=== PATIENT | male | born 1985 ===

== ENCOUNTER 2016-09-16 01:43 | Emergency (ER) | payer SELFPAY ==
[2016-09-16 01:55] VITALS: TEMP 98.4
--- NOTE | 2016-09-16 02:06 | ED PDOC ---
HPI: Hypertension/Hypotension Time Seen by Provider: 09/16/16 02:00 Chief Complaint (Nursing): High Blood Pressure Chief Complaint (Provider): high blood pressure History Per: Patient History/Exam Limitations: no limitations Onset/Duration Of Symptoms: Days Current Symptoms Are (Timing): Still Present Associated Symptoms: Dizziness, Headache Additional History Per: Patient Additional Complaint(s): 30 y/o male history of hypertension, diabetes (noncompliant) brought in by EMS for eval of high blood pressure. Patient states he was working at [employer] when he felt dizzy, lightheaded. He checked his blood pressure and found it to be in the 200's/100's. Patient notes headaches daily, improved tonight with two ibuprofen tablets taken at 19:00. Denies headache at present, extremity numbness/weakness, vision changes, nausea/vomiting, chest pain, shortness of breath, palpitations, abdominal pain. Past Medical History Reviewed: Historical Data, Nursing Documentation, Vital Signs Vital Signs: Last Vital Signs Temp 98.4 F 09/16/16 01:52 Pulse 91 H 09/16/16 01:52 Resp 17 09/16/16 01:52 BP 203/99 H 09/16/16 01:52 Pulse Ox 99 09/16/16 01:52 - Medical History PMH: Diabetes, HTN - Surgical History Surgical History: No Surg Hx - Family History Family History: States: Diabetes - Social History Current smoker - smoking cessation education provided: Yes Alcohol: Social Drugs: Denies - Home Medications Home Medications: Ambulatory Orders Medication Instructions Recorded Meclizine [Meclizine*] 25 mg PO Q6 PRN #20 tab 08/12/15 metFORMIN [glucOPHAGE] 500 mg PO BID #20 tab 08/12/15 amLODIPine [Norvasc] 10 mg PO DAILY #14 tab 09/16/16 metFORMIN [glucOPHAGE] 500 mg PO BID #28 tab 09/16/16 - Allergies Allergies/Adverse Reactions: Allergies Allergy/AdvReac Type Severity Reaction Status Date / Time No Known Allergies Allergy Verified 08/12/15 09:13 Review of Systems ROS Statement: Except As Marked, All Systems Reviewed And Found Negative Neurological: Positive for: Dizziness Physical Exam - Reviewed Nursing Documentation Reviewed: Yes Vital Signs Reviewed: Yes - Physical Exam Appears: Positive for: Well, Non-toxic, No Acute Distress Head Exam: Positive for: ATRAUMATIC, NORMAL INSPECTION, NORMOCEPHALIC Skin: Positive for: Normal Color Eye Exam: Positive for: Normal appearance, EOMI, PERRL ENT: Positive for: Normal ENT Inspection Cardiovascular/Chest: Positive for: Regular Rate, Rhythm Respiratory: Positive for: Normal Breath Sounds Gastrointestinal/Abdominal: Positive for: Normal Exam Back: Positive for: Normal Inspection Extremity: Positive for: Normal ROM Neurologic/Psych: Positive for: Alert, Oriented. Negative for: Motor/Sensory Deficits - Laboratory Results Result Diagrams: 09/16/16 02:22 09/16/16 02:22 Urine dip results: Positive for: Glucose. Negative for: Leukocyte Esterase, Blood, Nitrate, Ketones - ECG ECG: Positive for: Viewed By Me (reviewed by ED attending) ECG Rhythm: Positive for: Sinus Rhythm O2 Sat by Pulse Oximetry: 99 - Progress ED Course And Treament: labs, ekg, urine, CT head, clonidine PO EXAM: CT Head Without Intravenous Contrast CLINICAL HISTORY: 30 years old, male; Pain; Headache; Additional info: Lightheaded, hypertension TECHNIQUE: Axial computed tomography images of the head/brain without intravenous contrast. This CT exam was performed using one or more of the following dose reduction techniques: automated exposure control, adjustment of the mA and/or kV according to patient size, and/or use of iterative reconstruction technique. Coronal and sagittal reformatted images were created and reviewed. EXAM DATE/TIME: Exam ordered 09/16/2016 2:00 AM COMPARISON: CT - HEAD W/O CONTRAST 08/12/2015 10:20:12 AM FINDINGS: Brain: Comparison to previous dated August 12, 2015 at which time there was no acute intracranial pathology. No acute intracranial hemorrhage. Sulci are prominent for age. No significant white matter disease. No edema. Ventricles: Unremarkable. No ventriculomegaly. Bones/joints: No fractures are seen. Soft tissues: Unremarkable. Sinuses: Included portions of the paranasal sinuses are clear. Mastoid air cells: Appearance of the mastoid air cells is without change from the recent previous study. IMPRESSION: No fractures. No intracranial hemorrhage. No sinusitis. No apparent change compared to prior of August 12, 2015. Sulci are prominent for age. Clinical correlation No abnormality suspicious for acute stroke by noncontrast head CT. If there is clinical suspicion for stroke, please note that other modalities are considered to be more sensitive than noncontrast head CT. Please refer to the final report, as additional comparisons or other additional information may be available at that time. IV fluids, IV insulin ordered for elevated glucose in blood. 5:30 Patient states he is feeling much better. BP improved. BG improved Case discussed with ED attending Dr. Vega; who agrees patient can follow up outpatient. Patient educated on findings, discharged with rx Metformin, Amlodipine. Stressed importance of follow up at [facility]. Advised lifestyle modifications Return to ED for worsening/concerning symptoms. Disposition - Clinical Impression Clinical Impression: Hyperglycemia, Elevated blood pressure - Patient ED Disposition Is Patient to be Admitted: No Counseled Patient/Family Regarding: Studies Performed, Diagnosis, Need For Followup, Rx Given - Disposition Referrals: [facility] [Outside] [facility] [Outside] Disposition: Routine/Home Disposition Time: 05:36 Condition: IMPROVED Additional Instructions: Follow up at [facility] as directed. Fill prescriptions and take as directed. Watch salt, sugar intake. Return to ED for worsening/concerning symptoms. Prescriptions: amLODIPine [Norvasc] 10 mg PO DAILY #14 tab metFORMIN [glucOPHAGE] 500 mg PO BID #28 tab Instructions: Hypertension (ED), DASH Eating Plan (ED), Diabetic Hyperglycemia (ED)
[2016-09-16 02:37] LABS: BASO % 0.7 % (0.0-2.0); EOS # 0.1 K/uL (0.0-0.7); EOS % 1.6 % (0.0-4.0); HEMATOCRIT 41.4 % (35.0-51.0); LYMPH # 1.1 K/uL (1.0-4.3); LYMPH % 24.3 % (20.0-40.0); MEAN CELL VOLUME 85.4 fl (80.0-94.0); MEAN CORPUSCULAR HEMOGLOBIN 29.1 pg (27.0-31.0); MONO # 0.4 K/uL (0.0-0.8); MONO % 9.2 % (0.0-10.0); NEUT # 2.8 K/uL (1.8-7.0); NEUT % 64.2 % (50.0-75.0); NRBC % 0.1 % (0.0-0.0); RED CELL DISTRIBUTION WIDTH 14.1 % (11.5-14.5); WHITE BLOOD COUNT 4.4 K/uL (4.8-10.8)
[2016-09-16 02:58] LABS: ALB/GLOB RATIO 0.9 (1.0-2.1); ALKALINE PHOSPHATASE 263 U/L (38-126); ALT/SGPT 40 U/L (21-72); AST/SGOT 71 U/L (17-59); BILIRUBIN,TOTAL 1.4 mg/dl (0.2-1.3); BLOOD UREA NITROGEN 7 mg/dl (9-20); CALCIUM 9.6 mg/dL (8.4-10.2); CARBON DIOXIDE 28 mmol/L (22-30); CHLORIDE 101 mmol/L (98-107); GFR AFRICAN-AMERICAN > 60; POTASSIUM 3.9 MMOL/L (3.6-5.0); SODIUM 141 mmol/l (132-148); TOTAL PROTEIN 7.7 G/DL (6.3-8.2)
[2016-09-16 03:00] LABS: GLUCOSE,RANDOM 404 mg/dL (75-110)
[2016-09-16] MEDS ORDERED: Insulin Regular 100 units/ml IV STA (03:17)
[2016-09-16] MEDS ORDERED: Insulin Regular 100 units/ml ONE (03:29)
[2016-09-16] MEDS ORDERED: Sodium Chloride 0.9% 1,000 ML IV STA (03:50)
[2016-09-16 04:08] VITALS: RESP 18
[2016-09-16 04:24] VITALS: O2SAT 99
[2016-09-16 04:25] LABS: RBC URINE 2 /hpf (0-3); URINE BACTERIA RARE (<OCC); URINE BILIRUBIN NEGATIVE (NEGATIVE); URINE BLOOD NEGATIVE (NEGATIVE); URINE COLOR YELLOW (YELLOW); URINE GLUCOSE (UA) >=500 mg/dL (Normal); URINE KETONE NEGATIVE (NEGATIVE); URINE LEUKOCYTE ESTERASE NEG Leu/uL (Negative); URINE PROTEIN NEGATIVE (NEGATIVE); URINE UROBILINOGEN 0.2-1.0 mg/dL (0.2-1.0); WBC URINE 3 /hpf (0-5)
[2016-09-16 04:55] VITALS: BP 146/78; PULSE 86
[2016-09-16] MEDS ORDERED: levoFLOXacin 750 mg in D5W 750 MG/150 ML BAG IVPB STA (05:20)
--- NOTE | 2016-09-16 10:36 | CARD ---
APPROVED REPORT EKG Measurement Heart [id number] <Conclusion> Normal sinus rhythm Voltage criteria for left ventricular hypertrophy Abnormal ECG
--- NOTE | 2016-09-16 10:42 | CT ---
PROCEDURE: CT HEAD WITHOUT CONTRAST. HISTORY: lightheaded, hypertension COMPARISON: 08/12/2015 TECHNIQUE: Axial computed tomography images were obtained through the head/brain without intravenous contrast. Radiation dose: Total exam DLP = 869.58 mGy-cm. This CT exam was performed using one or more of the following dose reduction techniques: Automated exposure control, adjustment of the mA and/or kV according to patient size, and/or use of iterative reconstruction technique. FINDINGS: HEMORRHAGE: No intracranial hemorrhage. BRAIN: No mass effect or edema. No atrophy or chronic microvascular ischemic changes. VENTRICLES: Unremarkable. No hydrocephalus. CALVARIUM: Unremarkable. PARANASAL SINUSES: Unremarkable as visualized. No significant inflammatory changes. MASTOID AIR CELLS: Unremarkable as visualized. No inflammatory changes. OTHER FINDINGS: None. IMPRESSION: No intracranial mass, hemorrhage or evidence of acute infarct. Preliminary interpretation of this examination was reported by [facility] at 2:46 a.m. on 09/16/2016. There is concurrence of this report with the preliminary interpretation.
== END 2016-09-16 05:49 | disposition home or self-care (01) ==
LOC: H.ER 01:43
DX: I10 Essential (primary) hypertension (principal); E11.65 Type 2 diabetes mellitus with hyperglycemia; F17.200 Nicotine dependence, unspecified, uncomplicated; Z79.84 Long term (current) use of oral hypoglycemic drugs; Z79.899 Other long term (current) drug therapy; Z86.73 Personal history of transient ischemic attack (TIA), and cerebral infarction without residual deficits; R42 Dizziness and giddiness; R51 Headache
CPT/HCPCS: 70450; 80053; 81003; 85025; 93005; 96360; 99283; J7040

== ENCOUNTER 2017-05-14 07:53 | Emergency (ER) | payer OTHER ==
[2017-05-14 08:03] VITALS: TEMP 97.9
--- NOTE | 2017-05-14 08:19 | ED PDOC ---
Arrival/HPI - General Chief Complaint: Chest Pain Time Seen by Provider: 05/14/17 08:01 Historian: Patient - History of Present Illness Narrative History of Present Illness (Text): Keron Saunders is a 31 year old male with a past medical history of hypertension, diabetes, and depression presenting to the ED for an evaluation of mid-sternal chest pain associated with nausea and dizziness occurring 4-5 hours prior to arrival. 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 The patient describes his dizziness as a light-headed and spinning feeling. He states the chest pain lasted for 40 minutes, then stopped. His nausea and dizziness is still present upon evaluation. The patient reports similar symptoms experienced a few months prior to arrival, but states he was not medically evaluated prior to today. He also states chronic back pain, for which he takes Motrin. Additionally, the patient is concerned of recent weight loss reporting previous weight to be 360 lbs and recent weight to be 302 lbs with no change in daily activities. Of note, the patient is non-compliant with HTN medications. PMD: None Provided 05/14/17 08:59 Time/Duration: 4-6 hours Past Medical History - Provider Review Nursing Documentation Reviewed: Yes - Patient History Narrative Patient History: HTN, Diabetes, Depression - Cardiac Hx Cardiac Disorders: Yes Hx Hypertension: Yes - Neurological Hx Neurological Disorder: Yes Hx Migraine: Yes - Endocrine/Metabolic Hx Endocrine Disorders: Yes Hx Diabetes Mellitus Type 2: Yes - Psychiatric Hx Substance Use: No - Anesthesia Hx Anesthesia: No Family/Social History Family/Social History: denies: CAD/NV Smoking Status: Light Smoker < 10 Cigarettes Daily Hx Alcohol Use: Yes Hx Substance Use: No Allergies/Home Meds Allergies/Adverse Reactions: Allergies No Known Allergies Allergy (Verified 05/14/17 08:08) Review of Systems - Review of Systems Constitutional: Weight Change (recent weight loss). absent: Other (no fever) Respiratory: absent: SOB, Cough Cardiovascular: Chest Pain. absent: Edema Gastrointestinal: Nausea. absent: Abdominal Pain Neurological: Dizziness. absent: Headache, Focal Weakness Physical Exam Vital Signs Reviewed: Yes Vital Signs Temp Pulse Pulse Resp BP Pulse Ox 05/14/17 08:18 78 05/14/17 08:03 97.9 F 90 21 172/88 H 98 Appearance: Positive for: Well-Appearing, Non-Toxic, Comfortable Pain Distress: None Mental Status: Positive for: Alert and Oriented X 3 - Systems Exam Head: Present: Atraumatic Pupils: Present: PERRL Mouth: Present: Moist Mucous Membranes Respiratory/Chest: Present: Clear to Auscultation, Tender to Palpation (over sternum- light palpation reproduces pain) Cardiovascular: Present: Regular Rate and Rhythm Abdomen: No: Tenderness, Distention Upper Extremity: Present: NORMAL PULSES Lower Extremity: No: Edema Neurological: Present: GCS=15, Motor Func Grossly Intact, Normal Sensory Function, Other (no focla deficits) Skin: Present: Warm, Dry Psychiatric: Present: Alert, Oriented x 3 Medical Decision Making ED Course and Treatment: 05/14/17 08:01 Chest Xray results: FINDINGS: LUNGS: No definite acute infiltrate identified. Limited history volume is noted. The overall appearance is stable in the interval nevertheless. PLEURA: No significant pleural effusion identified. No pneumothorax apparent. CARDIOVASCULAR: Normal. OSSEOUS STRUCTURES: No significant abnormalities. VISUALIZED UPPER ABDOMEN: Normal. OTHER FINDINGS: None. IMPRESSION: No interval acute cardiopulmonary disease appreciated. 10:02 Patient reports feeling better. Scribe Attestation: Documented by Catrachita Noble, acting as a scribe for Alan Prince MD. Provider Scribe Attestation: All medical record entries made by the Scribe were at my direction and personally dictated by me. I have reviewed the chart and agree that the record accurately reflects my personal performance of the history, physical exam, medical decision making, and the department course for this patient. I have also personally directed, reviewed, and agree with the discharge instructions and disposition. 05/14/17 13:00 I calc this pt's HEART score to be moderate risk, therefore I rec admission to the hospital for further eval. I explained this to the pt including my concern for a life-threatening heart condition however he does not wish to stay. he v/u of the risks of leaving. He is clinically sober, free from distracting injury, appears to have intact insight and judgment and reason and in my opinion has the capacity to make decisions. He understands he may return at any time should he change his mind. pt counselled on the importance of PMD follow up and compliance with medications. - Lab Interpretations Lab Results: 05/14/17 08:40 05/14/17 08:40 Lab Results 05/14/17 11:55: Troponin I 0.0140 05/14/17 10:38: POC Glucose (mg/dL) 326 H 05/14/17 08:42: POC Glucose (mg/dL) 388 H 05/14/17 08:40: Sodium 133, Potassium 4.4, Chloride 101, Carbon Dioxide 24, Anion Gap 12, BUN 11, Creatinine 0.6 L, Est GFR ( Amer) > 60, Est GFR ( Non-Af Amer) > 60, Random Glucose 448 H*, Calcium 9.4, Total Bilirubin 1.0, AST 64 H, ALT 51, Alkaline Phosphatase 330 H, Troponin I 0.0130, Total Protein 7.5, Albumin 3.7, Globulin 3.8, Albumin/Globulin Ratio 1.0 05/14/17 08:40: WBC 5.3, RBC 4.97, Hgb 14.3, Hct 42.0, MCV 84.5, MCH 28.7, MCHC 33.9, RDW 14.0, Plt Count 93 L, MPV 9.3, Neut % (Auto) 62.8, Lymph % (Auto) 23.4 , Owen % (Auto) 11.0 H, Eos % (Auto) 2.2, Baso % (Auto) 0.6, Neut # 3.3, Lymph # 1.2, Owen # 0.6, Eos # 0.1, Baso # 0.0 - RAD Interpretation Radiology Orders: 05/14/17 08:21 CHEST TWO VIEWS (PA/LAT) [RAD] Stat - EKG Interpretation EKG Interpretation (Text): 05/14/17 09:04 Normal sinus Rate 96 LVH No acute ischemia Interpreted by ED Physician: Yes - Medication Orders Current Medication Orders: Discontinued Medications Sodium Chloride (Sodium Chloride 0.9%) 1,000 mls @ 1,000 mls/hr IV .Q1H DANIA Stop: 05/14/17 09:29 Last Admin: 05/14/17 08:40 Dose: 1,000 mls/hr eMAR Start Stop Document 05/14/17 08:40 JG (Rec: 05/14/17 08:40 JG [id number]) Intravenous Solution Start Date 05/14/17 Start Time 08:40 End Date 05/14/17 End time 09:40 Total Infusion Time 60 Insulin Human Regular (Humulin R) 6 units SC STAT STA Stop: 05/14/17 09:13 Last Admin: 05/14/17 09:56 Dose: 6 units Subcutaneous Administrations Document 05/14/17 09:56 JG (Rec: 05/14/17 09:57 JG [id number]) Injection Site MAR Injection Site Left Arm Charges for Administration # of Subcutaneous Administrations 1 Subcutaneous Admin in ER Document 05/14/17 09:56 JG (Rec: 05/14/17 09:57 JG [id number]) Injection Site MAR Injection Site Left Arm Ketorolac Tromethamine (Toradol) 10 mg IVP STAT STA Stop: 05/14/17 08:23 Last Admin: 05/14/17 08:40 Dose: 10 mg MAR Pain Assessment Document 05/14/17 08:40 JG (Rec: 05/14/17 08:41 JG [id number]) Pain Reassessment Is this a pain reassessment? No Sleep Is patient sleeping during reassessment? No Presence of Pain Presence of Pain Yes Pain Scale Used Pain Scale Used Numeric Location Pain Location Body Site Chest Description Description Intermittent Intensity of Pain at present 3 IVP Administration Document 05/14/17 08:40 JG (Rec: 05/14/17 08:41 JG [id number]) Charges for Administration # of IVP Administrations 1 Re-Assess: MAR Pain Reassessment Document 05/14/17 09:10 JG (Rec: 05/14/17 09:57 JG [id number]) Sleep Is patient sleeping during reassessment? No Pain Reassessment Pain not relieved and LIP/MD was Yes notified Pain Scale Used Numeric Pain Scale Level 1 Disposition/Present on Arrival - Present on Arrival Any Indicators Present on Arrival: No - Disposition Have Diagnosis and Disposition been Completed?: Yes Diagnosis: Chest pain, Hyperglycemia Disposition: AGAINST MEDICAL ADVICE Disposition Time: 13:00 Patient Problems: Current Active Problems Problem Status Onset Chest pain Acute Hyperglycemia Acute Condition: STABLE Discharge Instructions (ExitCare): Chest Pain (ED), Diabetic Hyperglycemia (ED) Additional Instructions: Please follow up with a primary doctor as soon as possible. You may return to the ER at any time should you change your mind. Referrals: [facility] [Outside] Forms: [employer] (Citizen [place]), [facility] ED School/Work Excuse
[2017-05-14 08:22] VITALS: PULSE 78
--- NOTE | 2017-05-14 08:34 | RAD ---
HISTORY: cp COMPARISON: Chest radiographs 09/25/2010. TECHNIQUE: Chest PA and lateral FINDINGS: LUNGS: No definite acute infiltrate identified. Limited history volume is noted. The overall appearance is stable in the interval nevertheless. PLEURA: No significant pleural effusion identified. No pneumothorax apparent. CARDIOVASCULAR: Normal. OSSEOUS STRUCTURES: No significant abnormalities. VISUALIZED UPPER ABDOMEN: Normal. OTHER FINDINGS: None. IMPRESSION: No interval acute cardiopulmonary disease appreciated.
[2017-05-14] MEDS: Sodium Chloride 0.9% 1,000 ML IV SCH (08:40)
[2017-05-14 08:47] LABS: BASO % 0.6 % (0.0-2.0); EOS # 0.1 K/uL (0.0-0.7); EOS % 2.2 % (0.0-4.0); LYMPH # 1.2 K/uL (1.0-4.3); LYMPH % 23.4 % (20.0-40.0); MEAN CELL VOLUME 84.5 fl (80.0-94.0); MEAN CORPUSCULAR HEMOGLOBIN 28.7 pg (27.0-31.0); MEAN CORPUSCULAR HGB CONC 33.9 g/dL (33.0-37.0); MEAN PLATELET VOLUME 9.3 fl (7.2-11.7); MONO # 0.6 K/uL (0.0-0.8); NEUT # 3.3 K/uL (1.8-7.0); NEUT % 62.8 % (50.0-75.0); NRBC % 0.1 % (0.0-0.0); WHITE BLOOD COUNT 5.3 K/uL (4.8-10.8)
[2017-05-14 09:18] LABS: ALKALINE PHOSPHATASE 330 U/L (38-126); ALT/SGPT 51 U/L (21-72); AST/SGOT 64 U/L (17-59); BLOOD UREA NITROGEN 11 mg/dl (9-20); CALCIUM 9.4 mg/dL (8.4-10.2); CARBON DIOXIDE 24 mmol/L (22-30); CHLORIDE 101 mmol/L (98-107); GFR AFRICAN-AMERICAN > 60; GLUCOSE,RANDOM 448 mg/dL (75-110); POTASSIUM 4.4 MMOL/L (3.6-5.0); SODIUM 133 mmol/l (132-148); TOTAL PROTEIN 7.5 G/DL (6.3-8.2)
[2017-05-14] MEDS ORDERED: Insulin Regular 100 units/ml ONE (09:54)
[2017-05-14] MEDS: Insulin Regular 100 units/ml SC STA (09:56)
[2017-05-14 13:20] VITALS: BP 156/96; RESP 20; O2SAT 99
--- NOTE | 2017-05-14 15:51 | CARD ---
APPROVED REPORT EKG Measurement Heart [id number] [id number] <Conclusion> Normal sinus rhythm Voltage criteria for left ventricular hypertrophy Abnormal ECG
== END 2017-05-14 13:20 | disposition left against medical advice (07) ==
LOC: H.ER 07:53
DX: E11.65 Type 2 diabetes mellitus with hyperglycemia (principal); R07.89 Other chest pain; F17.210 Nicotine dependence, cigarettes, uncomplicated; F32.9 Major depressive disorder, single episode, unspecified; G43.909 Migraine, unspecified, not intractable, without status migrainosus; G89.29 Other chronic pain; I10 Essential (primary) hypertension; Z91.19 Patient's noncompliance with other medical treatment and regimen
CPT/HCPCS: 71020; 80053; 82948; 84484; 85025; 93005; 96361; 96374; 99285; J1885; J7040

== ENCOUNTER 2017-12-06 03:22 | Emergency (ER) | payer OTHER ==
[2017-12-06 03:25] VITALS: BP 130/86; RESP 21; O2SAT 98
[2017-12-06 03:27] VITALS: BMI 41.8
[2017-12-06 03:28] VITALS: PULSE 100; TEMP 99.6
--- NOTE | 2017-12-06 04:50 | ED PDOC ---
HPI: Dental Pain/Injury Time Seen by Provider: 12/06/17 03:40 Chief Complaint (Nursing): Dental Pain History Per: Patient Additional Complaint(s): Pt. states for the past 2 days he's had intermittent gum bleeding. States bleeding occurs after brushing his teeth. Today he noticed swelling on the L lower gums with pain radiating to the L ear. Denies fever, trauma, sore throat, headache, anticoagulant use. Past Medical History Reviewed: Historical Data, Nursing Documentation, Vital Signs Vital Signs: Last Vital Signs Temp 99.6 F 12/06/17 03:24 Pulse 100 H 12/06/17 03:24 Resp 21 12/06/17 03:24 BP 130/86 12/06/17 03:24 Pulse Ox 98 12/06/17 03:24 - Medical History PMH: Diabetes, HTN, Migraine - Family History Family History: States: Diabetes - Home Medications Home Medications: Ambulatory Orders Medication Instructions Recorded Meclizine [Meclizine*] 25 mg PO Q6 PRN #20 tab 08/12/15 metFORMIN [glucOPHAGE] 500 mg PO BID #20 tab 08/12/15 amLODIPine [Norvasc] 10 mg PO DAILY #14 tab 09/16/16 metFORMIN [glucOPHAGE] 500 mg PO BID #28 tab 09/16/16 Amoxicillin [Amoxil 500 mg Cap] 500 mg PO TID #12 cap 12/06/17 - Allergies Allergies/Adverse Reactions: Allergies Allergy/AdvReac Type Severity Reaction Status Date / Time No Known Allergies Allergy Verified 12/06/17 03:38 Review of Systems ROS Statement: Except As Marked, All Systems Reviewed And Found Negative Physical Exam - Physical Exam Appears: Positive for: Well, Non-toxic, No Acute Distress Head Exam: Positive for: ATRAUMATIC, NORMAL INSPECTION, NORMOCEPHALIC Skin: Positive for: Normal Color, Warm. Negative for: Rash Eye Exam: Positive for: Normal appearance ENT: Positive for: TM Is/Are (non-erythematous, non-bulging b/l), Other (no gingival swelling or bleeding noted; dentition intact; no malocclusion). Negative for: Pharyngeal Erythema, Tonsillar Exudate, Tonsillar Swelling Neurologic/Psych: Positive for: Alert, Oriented. Negative for: Aphasia, Facial Droop - ECG O2 Sat by Pulse Oximetry: 98 Disposition - Clinical Impression Clinical Impression: Toothache - Patient ED Disposition Is Patient to be Admitted: No - Disposition Referrals: [facility] [Outside] Disposition: Routine/Home Disposition Time: 04:00 Condition: STABLE Additional Instructions: MITCHELL COPE, thank you for letting us take care of you today. Your provider was Neno Vila MD and you were treated for TOOTHACHE. The emergency medical care you received today was directed at your acute symptoms. If you were prescribed any medication, please fill it and take as directed. It may take several days for your symptoms to resolve. Return to the Emergency Department if your symptoms worsen, do not improve, or if you have any other problems. Please contact your doctor or call one of the physicians/clinics you have been referred to that are listed on the Patient Visit Information form that is included in your discharge packet. Bring any paperwork you were given at discharge with you along with any medications you are taking to your follow up visit. Our treatment cannot replace ongoing medical care by a primary care provider outside of the emergency department. Thank you for allowing the [facility] team to be part of your care today. If you had an X-Ray or CT scan: A Radiologist will review the ED reading if any change in treatment is needed we will contact you. If you had a blood, urine, or wound culture: It will take several days for the results, if any change in treatment is needed we will contact you. If you had an STI test: It will take 48 hours for the results. Please call after 1 week if you have not heard back. Prescriptions: Amoxicillin [Amoxil 500 mg Cap] 500 mg PO TID #12 cap Instructions: Dental Pain (DC) Forms: [facility] (Maltese) Print Language: AMHARIC
== END 2017-12-06 04:30 | disposition home or self-care (01) ==
LOC: H.ER 03:22
DX: K08.9 Disorder of teeth and supporting structures, unspecified (principal); E11.9 Type 2 diabetes mellitus without complications; I10 Essential (primary) hypertension; Z79.84 Long term (current) use of oral hypoglycemic drugs

== ENCOUNTER 2018-05-11 03:45 | Emergency (ER) | payer OTHER ==
[2018-05-11 03:45] VITALS: BMI 41.8
--- NOTE | 2018-05-11 04:10 | ED PDOC ---
HPI: General Adult Time Seen by Provider: 05/11/18 04:00 Chief Complaint (Nursing): Flu-like Symptoms Chief Complaint (Provider): flu-like symptoms History Per: Patient History/Exam Limitations: no limitations Onset/Duration Of Symptoms: Days (3) Current Symptoms Are (Timing): Still Present Additional Complaint(s): 32 y/o male history of type II diabetes (noncompliant), hypertension (noncompliant) presents for evaluation of flu-like symptoms x 3 days. Patient reports nasal congestion, sore throat, left ear discomfort, and one episode of vomiting. Patient reports feeling generally weak, with fever of 101F noted last night. Denies headache, dizziness, cough, chest pain, shortness of breath, palpitations, changes in bowel movements, urinary symptoms, recent travel, sick contacts. Past Medical History Reviewed: Historical Data, Nursing Documentation, Vital Signs Vital Signs: Last Vital Signs Temp 98.9 F 05/11/18 03:55 Pulse 93 H 05/11/18 03:55 Resp 17 05/11/18 03:55 BP 181/120 H 05/11/18 03:55 Pulse Ox 98 05/11/18 03:55 - Medical History PMH: Diabetes, HTN, Migraine - Surgical History Surgical History: No Surg Hx - Family History Family History: States: Diabetes - Home Medications Home Medications: Ambulatory Orders Medication Instructions Recorded Meclizine [Meclizine*] 25 mg PO Q6 PRN #20 tab 08/12/15 metFORMIN [glucOPHAGE] 500 mg PO BID #20 tab 08/12/15 amLODIPine [Norvasc] 10 mg PO DAILY #14 tab 09/16/16 metFORMIN [glucOPHAGE] 500 mg PO BID #28 tab 09/16/16 Amoxicillin [Amoxil 500 mg Cap] 500 mg PO TID #12 cap 12/06/17 - Allergies Allergies/Adverse Reactions: Allergies Allergy/AdvReac Type Severity Reaction Status Date / Time No Known Allergies Allergy Verified 05/11/18 03:57 Review of Systems ROS Statement: Except As Marked, All Systems Reviewed And Found Negative Constitutional: Positive for: Fever, Weakness ENT: Positive for: Ear Pain, Throat Pain Gastrointestinal: Positive for: Vomiting Physical Exam - Reviewed Nursing Documentation Reviewed: Yes Vital Signs Reviewed: Yes - Physical Exam Appears: Positive for: Well, Non-toxic, No Acute Distress Head Exam: Positive for: ATRAUMATIC, NORMAL INSPECTION, NORMOCEPHALIC Skin: Positive for: Normal Color Eye Exam: Positive for: Normal appearance ENT: Positive for: TM Is/Are (clear bilaterally), Pharyngeal Erythema. Negative for: Tonsillar Exudate, Tonsillar Swelling Neck: Positive for: Normal, Painless ROM Cardiovascular/Chest: Positive for: Regular Rate, Rhythm Respiratory: Positive for: Normal Breath Sounds Gastrointestinal/Abdominal: Positive for: Normal Exam Back: Positive for: Normal Inspection Extremity: Positive for: Normal ROM Neurologic/Psych: Positive for: Alert, Oriented (x3) - ECG O2 Sat by Pulse Oximetry: 98 Disposition - Clinical Impression Clinical Impression: Hyperglycemia, Elevated blood pressure, Influenza-like symptoms - Disposition Disposition Time: 05:00 Condition: STABLE Forms: [employer] ([place]) Patient Signed Over To: Tangela Jules Handoff Comments: pending labs, re-eval
[2018-05-11] MEDS ORDERED: Sodium Chloride 0.9% 1,000 ML IV STA (04:26)
[2018-05-11 05:03] LABS: EOS # 0.1 K/uL (0.0-0.7); MEAN CELL VOLUME 85.4 fl (80.0-94.0); MONO # 0.4 K/uL (0.0-0.8); NEUT # 2.1 K/uL (1.8-7.0); SQUAMOUS EPITHIAL < 1 /hpf (0-5); URINE BACTERIA RARE (<OCC); URINE BILIRUBIN NEGATIVE (NEGATIVE); URINE BLOOD NEGATIVE (NEGATIVE); URINE CLARITY CLEAR (Clear); URINE COLOR YELLOW (YELLOW); URINE GLUCOSE (UA) >=500 mg/dL (NEGATIVE); URINE LEUKOCYTE ESTERASE NEG Leu/uL (Negative); URINE PROTEIN NEGATIVE (NEGATIVE)
[2018-05-11 05:07] LABS: BASO % 0.4 % (0.0-2.0); EOS % 3.1 % (0.0-4.0); HEMOGLOBIN 13.7 g/dL (12.0-18.0); LYMPH # 0.7 K/uL (1.0-4.3); LYMPH % 22.5 % (20.0-40.0); MEAN CORPUSCULAR HEMOGLOBIN 28.6 pg (27.0-31.0); MEAN CORPUSCULAR HGB CONC 33.5 g/dL (33.0-37.0); MEAN PLATELET VOLUME 9.8 fl (7.2-11.7); MONO % 10.9 % (0.0-10.0); NEUT % 63.1 % (50.0-75.0); RBC 4.8 Mil/uL (4.40-5.90); RED CELL DISTRIBUTION WIDTH 14.2 % (11.5-14.5); WHITE BLOOD COUNT 3.3 K/uL (4.8-10.8)
[2018-05-11 05:11] LABS: ALB/GLOB RATIO 0.9 (1.0-2.1); ALBUMIN 3.5 g/dL (3.5-5.0); ALT/SGPT 48 U/L (21-72); AST/SGOT 88 U/L (17-59); BLOOD UREA NITROGEN 5 mg/dl (9-20); CALCIUM 8.6 mg/dL (8.4-10.2); GFR NON-AFRICAN AMERICAN > 60; LIPASE 310 U/L (23-300)
--- NOTE | 2018-05-11 05:24 | ED PDOC ---
- Laboratory Results Result Diagrams: 05/11/18 04:50 05/11/18 04:50 - ECG O2 Sat by Pulse Oximetry: 98 Medical Decision Making Medical Decision Makin Patient care endorsed from JULIAN Owen to this provider pending repeat BP, accucheck, and reevaluation. 0612 Repeat bp and accucheck within normal limits. bp improved. pt states feels fine. Patient stable for discharge. recommending to pt that he follow up as outpt. Scribe Attestation: Documented by Missy Craig acting as a scribe for Tangela Jules MD. Provider Scribe Attestation: All medical record entries made by the Scribe were at my direction and personally dictated by me. I have reviewed the chart and agree that the record accurately reflects my personal performance of the history, physical exam, medical decision making, and the department course for this patient. I have also personally directed, reviewed, and agree with the discharge instructions and disposition. Disposition Counseled Patient/Family Regarding: Studies Performed, Diagnosis, Need For Followup - Clinical Impression Clinical Impression: Hyperglycemia, Elevated blood pressure, Influenza-like symptoms - POA Present On Arrival: None - Disposition Referrals: [facility] [Outside] [facility] [Outside] Disposition: Routine/Home Disposition Time: 06:15 Condition: IMPROVED Additional Instructions: follow up with your doctor in 1-2 days return to the ED with any worsening or concerning symptoms Instructions: High Blood Pressure (DC), Hyperglycemia, Adult (DC) Forms: [employer] (Kitt[place]), [facility] ED School/Work Excuse
[2018-05-11 05:35] VITALS: RESP 18
--- NOTE | 2018-05-11 06:04 | CARD ---
APPROVED REPORT Date of service: 05/11/2018 EKG Measurement Heart [id number] <Conclusion> Normal sinus rhythm Voltage criteria for left ventricular hypertrophy Abnormal ECG
[2018-05-11 07:35] VITALS: BP 146/90; PULSE 80; TEMP 98.2
[2018-05-12 23:16] VITALS: O2SAT 98
== END 2018-05-11 07:35 | disposition home or self-care (01) ==
LOC: H.ER 03:45
DX: J11.1 Influenza due to unidentified influenza virus with other respiratory manifestations (principal); I10 Essential (primary) hypertension; E11.65 Type 2 diabetes mellitus with hyperglycemia; Z79.84 Long term (current) use of oral hypoglycemic drugs; I11.9 Hypertensive heart disease without heart failure; Z91.14 Patient's other noncompliance with medication regimen
CPT/HCPCS: 80053; 81003; 82948; 83690; 85025; 87070; 87430; 87804; 93005; 96360; 99283; J2405; J7030

== ENCOUNTER 2018-06-14 21:58 | Emergency (ER) | payer OTHER ==
[2018-06-14 21:59] VITALS: BMI 41.8
[2018-06-14] MEDS ORDERED: Sodium Chloride 0.9% 1,000 ML IV STA (22:57)
--- NOTE | 2018-06-14 23:13 | ED PDOC ---
HPI:Nausea, Vomiting, Diarrhea Time Seen by Provider: 06/14/18 22:48 Chief Complaint (Nursing): GI Problem Chief Complaint (Provider): nausea, vomiting, diarrhea History Per: Patient History/Exam Limitations: no limitations Onset/Duration Of Symptoms: Days (x3) Current Symptoms Are (Timing): Still Present Associated Symptoms: Nausea, Vomiting, Diarrhea. denies: Fever (resolved) Additional Complaint(s): Keron Saunders is a 32 year old male, with a past medical history of HTN and obesity, who presents to the emergency department complaining of nausea, vomiting and diarrhea onset for x3 days. Patient also reports feeling weak and dehydrated associated with dizziness. Patient states since Wednesday he's had multiple episodes of each daily. He describes the diarrhea as brown and loose, and states vomiting contents are clear. Patient further states he is trying to make himself vomit because he feels nauseated but nothing is coming out. Patient is not on any blood pressure medications because he doesn't have a primary doctor. He denies any abdominal surgeries. Patient reports having a fever of 101 x2 days ago but resolved spontaneously. He denies any other medical complaints. PMD: None provided. Past Medical History Reviewed: Historical Data, Nursing Documentation, Vital Signs Vital Signs: Last Vital Signs Temp 98.3 F 06/14/18 22:19 Pulse 89 06/14/18 22:19 Resp 20 06/14/18 22:19 BP 180/100 H 06/14/18 22:19 Pulse Ox 98 06/14/18 22:19 - Medical History PMH: Diabetes, HTN, Migraine - Surgical History Surgical History: No Surg Hx - Family History Family History: States: Diabetes - Home Medications Home Medications: Ambulatory Orders Medication Instructions Recorded Meclizine [Meclizine*] 25 mg PO Q6 PRN #20 tab 08/12/15 metFORMIN [glucOPHAGE] 500 mg PO BID #20 tab 08/12/15 amLODIPine [Norvasc] 10 mg PO DAILY #14 tab 09/16/16 metFORMIN [glucOPHAGE] 500 mg PO BID #28 tab 09/16/16 Amoxicillin [Amoxil 500 mg Cap] 500 mg PO TID #12 cap 12/06/17 Ondansetron ODT [Zofran ODT] 4 mg PO Q8 PRN #12 odt 06/15/18 Ranitidine HCl [Acid Chair Maker] 150 mg PO BID #12 tablet 06/15/18 - Allergies Allergies/Adverse Reactions: Allergies Allergy/AdvReac Type Severity Reaction Status Date / Time No Known Allergies Allergy Verified 06/14/18 22:19 Review of Systems ROS Statement: Except As Marked, All Systems Reviewed And Found Negative Constitutional: Positive for: Weakness (generalized ). Negative for: Fever Gastrointestinal: Positive for: Nausea, Vomiting, Diarrhea Neurological: Positive for: Dizziness Physical Exam - Reviewed Nursing Documentation Reviewed: Yes Vital Signs Reviewed: Yes - Physical Exam Appears: Positive for: No Acute Distress Head Exam: Positive for: ATRAUMATIC, NORMAL INSPECTION, NORMOCEPHALIC Skin: Positive for: Normal Color, Warm, Dry Eye Exam: Positive for: Normal appearance, EOMI, PERRL ENT: Positive for: Normal ENT Inspection Neck: Positive for: Normal, Painless ROM Cardiovascular/Chest: Positive for: Regular Rate, Rhythm. Negative for: Murmur Respiratory: Positive for: Normal Breath Sounds. Negative for: Respiratory Distress Gastrointestinal/Abdominal: Positive for: Soft, Tenderness (mild tenderness to epigastric region), Other (obese). Negative for: Guarding, Rebound Back: Positive for: Normal Inspection. Negative for: L CVA Tenderness, R CVA Tenderness, Vertebral Tenderness Extremity: Positive for: Normal ROM (upper and lower extremities). Negative for: Deformity, Swelling Neurologic/Psych: Positive for: Alert, Oriented - Laboratory Results Result Diagrams: 06/14/18 23:32 06/14/18 23:32 - ECG O2 Sat by Pulse Oximetry: 98 (RA) Pulse Ox Interpretation: Normal Medical Decision Making Medical Decision Making: Time: 22:48 A/P: 32 y/o male with history of HTN presenting with nausea, vomiting, diarrhea and epigastric intestinal illness. Not concerned for acute appendicitis, cholecystitis or other acute gastrointestinal pathology. Initial Plan: --BMP --CBC w/ differential --Pepcid 20 mg IVP --NaCl 1,000 ml IV 1,000 mls/hr --Zofran Inj 4 mg IVP --Reevaluation 00:30 Patient is feeling much better Advised of results, strongly encouraged patient to follwoup with PMD regarding high blood pressure and hyperglycemia Tolerating PO, vitals improved Well appearing upon discharge No anion gap and normal bicarb, not concerned for DKA Scribe Attestation: Documented by Nicholas Bishop, acting as a scribe for Weston Vega MD Provider Scribe Attestation: All medical record entries made by the Scribe were at my direction and personally dictated by me. I have reviewed the chart and agree that the record accurately reflects my personal performance of the history, physical exam, medical decision making, and the department course for this patient. I have also personally directed, reviewed, and agree with the discharge instructions and dis position. Disposition - Clinical Impression Clinical Impression: Gastroenteritis - Disposition Referrals: [facility] [Outside] Disposition: Routine/Home Disposition Time: 00:30 Condition: STABLE Prescriptions: Ondansetron ODT [Zofran ODT] 4 mg PO Q8 PRN #12 odt PRN Reason: Nausea/Vomiting Ranitidine HCl [Acid Chair Maker] 150 mg PO BID #12 tablet Instructions: Viral Gastroenteritis Forms: [facility] ([place]), [facility] ED School/Work Excuse
[2018-06-14 23:38] LABS: BASO % 0.4 % (0.0-2.0); EOS # 0.2 K/uL (0.0-0.7); EOS % 5.3 % (0.0-4.0); HEMOGLOBIN 13.9 g/dL (12.0-18.0); LYMPH # 0.7 K/uL (1.0-4.3); LYMPH % 20.4 % (20.0-40.0); MEAN CELL VOLUME 84.7 fl (80.0-94.0); MEAN CORPUSCULAR HEMOGLOBIN 28.6 pg (27.0-31.0); MEAN CORPUSCULAR HGB CONC 33.8 g/dL (33.0-37.0); MEAN PLATELET VOLUME 9.9 fl (7.2-11.7); MONO # 0.4 K/uL (0.0-0.8); NEUT # 2.3 K/uL (1.8-7.0); NEUT % 63.9 % (50.0-75.0); NRBC % 0.2 % (0.0-0.0); RBC 4.87 Mil/uL (4.40-5.90); RED CELL DISTRIBUTION WIDTH 14.8 % (11.5-14.5); WHITE BLOOD COUNT 3.6 K/uL (4.8-10.8)
[2018-06-14 23:47] LABS: BLOOD UREA NITROGEN 6 mg/dl (9-20); CALCIUM 8.7 mg/dL (8.4-10.2); GFR NON-AFRICAN AMERICAN > 60
[2018-06-15 07:03] VITALS: BP 146/87; PULSE 68; RESP 17; TEMP 97.9; O2SAT 100
== END 2018-06-15 01:42 | disposition home or self-care (01) ==
LOC: H.ER 21:58
DX: K52.9 Noninfective gastroenteritis and colitis, unspecified (principal); E11.65 Type 2 diabetes mellitus with hyperglycemia; I10 Essential (primary) hypertension; Z79.84 Long term (current) use of oral hypoglycemic drugs; Z79.899 Other long term (current) drug therapy
CPT/HCPCS: 80048; 82948; 85025; 96361; 96374; 96375; 99284; J2405; J7030